=== PATIENT | male | born 1945 | race Hispanic/Latino ===

== ENCOUNTER 2024-03-29 08:05 | Day surgery (SDC) | payer OTHER ==
[~2024-03-29] VITALS: Ht 160 cm; Wt 76.2 kg
[2024-03-29] VITALS (9 sets, daily range): BP systolic 118–165; BP diastolic 57–77; PULSE 69–92; RESP 14–19
[~2024-03-29 08:05] MED LIST: ATOR40TA71 PO; METF-445 PO
[2024-03-29] MEDS ORDERED: LOSA50TA64 PO (10:51)
[2024-03-29] MEDS ORDERED: VIBE75TA PO (10:51)
[2024-03-29] MEDS: 0.9%NACL 1000ML 1,000 ML IV ONE (10:52)
[2024-03-29] MEDS ORDERED: PROPOFOL 10 MG/ML 20ML VIAL IV ONE (11:42)
== END 2024-03-29 12:40 | disposition home or self-care (01) ==
LOC: DAH 08:05 → ENDO 08:05
PROVIDERS: ATTEND Internal Medicine Gastroenterology
DX: R10.13 Epigastric pain (principal); K29.50 Unspecified chronic gastritis without bleeding; K31.A0 Gastric intestinal metaplasia, unspecified; E11.9 Type 2 diabetes mellitus without complications; I10 Essential (primary) hypertension; J84.10 Pulmonary fibrosis, unspecified; E66.9 Obesity, unspecified; Z68.29 Body mass index [BMI] 29.0-29.9, adult; Z83.3 Family history of diabetes mellitus; Z80.1 Family history of malignant neoplasm of trachea, bronchus and lung; Z82.3 Family history of stroke; Z82.49 Family history of ischemic heart disease and other diseases of the circulatory system; Z79.84 Long term (current) use of oral hypoglycemic drugs; Z79.899 Other long term (current) drug therapy
CPT/HCPCS: 82948 ×2; 43239; J7030 ×2; J2704; A4620; A4215; A4223; A7002; A4222; A4221; A4663; A4606; J3490

== ENCOUNTER 2025-06-10 06:10 | Day surgery (SDC) | payer OTHER ==
[2025-06-10] VITALS (12 sets, daily range): BP systolic 103–175; BP diastolic 57–95; PULSE 60–73; RESP 15–18; TEMP 97.1–97.9
[~2025-06-10] VITALS: Ht 157.5 cm; Wt 73.0 kg
[~2025-06-10 06:10] MED LIST changes: +0.9%NACL 1000ML 1,000 ML IV ONE; +LOSA50TA64 PO; +VIBE75TA PO
[2025-06-10] MEDS ORDERED: ASPI-1005 PO (06:45)
[2025-06-10] MEDS ORDERED: CLOP75TA32 PO (06:45)
[2025-06-10] MEDS ORDERED: DOXA8TAB81 PO (06:45)
[2025-06-10] MEDS ORDERED: METF-444 PO (06:45)
[2025-06-10] MEDS ORDERED: AMLO-257 PO (06:45)
[2025-06-10] MEDS ORDERED: LOSA25TA41 PO (06:45)
[2025-06-10] MEDS ORDERED: CHOL200013 PO (06:45)
[2025-06-10] MEDS ORDERED: METO50TA18 PO (07:38)
== END 2025-06-10 09:46 | disposition home or self-care (01) ==
LOC: DAH 06:10 → ENDO 06:10
PROVIDERS: ATTEND Internal Medicine Gastroenterology
DX: R12 Heartburn (principal); K31.89 Other diseases of stomach and duodenum; K29.70 Gastritis, unspecified, without bleeding; K31.A19 Gastric intestinal metaplasia without dysplasia, unspecified site; K44.9 Diaphragmatic hernia without obstruction or gangrene; K59.01 Slow transit constipation; J84.10 Pulmonary fibrosis, unspecified; I10 Essential (primary) hypertension; E11.9 Type 2 diabetes mellitus without complications; Z87.442 Personal history of urinary calculi; Z79.84 Long term (current) use of oral hypoglycemic drugs; Z79.82 Long term (current) use of aspirin; Z79.899 Other long term (current) drug therapy
CPT/HCPCS: 43239; 82948 ×2; J7030; J2704; A4620; A4215; J3490